=== PATIENT | male | born 1990 | race Caucasian/White ===

== ENCOUNTER → 2021-05-18 | Outpatient (CLI) | payer BC | LOC: RAD 10:20 | DX: M54.2 Cervicalgia (principal) ==

== ENCOUNTER → 2024-02-19 | Outpatient (CLI) | payer BC ==
[2024-02-19 16:35] LABS: HEMATOCRIT 44.7 % (42.0-52.0); HEMOGLOBIN 15.4 g/dL (13.5-18.0); MEAN PLATELET VOLUME 11.3 fl (7.4-10.4); RED BLOOD COUNT 5.22 M/mm3 (4.20-5.60); RED CELL DISTRIBUTION WIDTH 11.8 % (11.5-14.5); WHITE BLOOD COUNT 6.6 K/mm3 (4.8-10.8)
[2024-02-19 16:40] LABS: SODIUM 140 mmol/L (136-145)
[2024-02-19 16:41] LABS: ALBUMIN 4.7 g/dL (3.5-5.0); CALCIUM 9.7 mg/dL (8.3-10.5)
[2024-02-19 16:43] LABS: GLUCOSE 75 mg/dL (75-110); TOTAL PROTEIN 6.6 g/dL (6.4-8.3)
[2024-02-19 16:44] LABS: CARBON DIOXIDE 25 mmol/L (22-29); TOTAL BILIRUBIN 0.4 mg/dL (0.2-1.2)
[2024-02-19 16:48] LABS: AST-SGOT 21 U/L (5-34)
[2024-02-19 16:50] LABS: ALT/SGPT 40 U/L (0-55)
[2024-02-19 17:17] LABS: TROPONIN-I < 0.030 ng/mL (0.00-0.033)
== END ==
LOC: AMSURD 15:38
PROVIDERS: Nurse Practitioner Family
DX: R07.9 Chest pain, unspecified (principal)